=== PATIENT | male | born 1960 | race Caucasian/White ===

== ENCOUNTER 2023-08-30 07:09 | Emergency (ER) | payer OTHER, SELFPAY ==
[2023-08-30 07:10] VITALS: BP 163/107
[2023-08-30 07:41] VITALS: BMI 30.6
[2023-08-30 07:48] VITALS: BP 148/85
[2023-08-30 08:00] VITALS: BP 150/86
[2023-08-30] MEDS: NSS 500 IV (08:02)
[2023-08-30] MEDS: OMNIPAQUE 50 ML PO (08:02)
[2023-08-30 08:04] VITALS: BP 150/86
--- NOTE | 2023-08-30 08:05 | ED.GENMED ---
History of Present Illness
General
Chief Complaint: Bowel Problem
Source: patient
Exam Limitations: none
Time Seen by Provider: 08/30/23 07:21
Travel History
Have you had any contact with someone who has COVID-19?: No
Do you have any symptoms of coronavirus? Fever > 100 degrees, chills, cough, shortness of breath, sore throat, loss of taste or smell, muscle aches, or headache?: No
History of Present Illness
History of Present Illness:
63-year-old male complaining of abdominal bloating distention vague discomfort and no bowel movement for 2 or 3 days. History of an episode like this in the past. No response to oral laxatives. No fever no back pain.
Past History
Past History
ED Past Medical History: NIDDM
ED Past Surgical History: Other (umbilical hernia repair age 30)
Social History
Tobacco: Smoker
Alcohol: Occasional
Drug: None
Personal:
Living: with family (Patient has 4 daughters )
Employment: Employed (Patient states he works 2 jobs )
Family History
Family History: Other (Cerebral aneurysms ); Negative Diabetes, Hypertension, Early CAD, Asthma or Cancer
Review of Systems
Review of Systems
All Other Systems: Not applicable
Constitutional: Denies fever
Respiratory: Reports no symptoms
Cardiac: Reports no symptoms
: Reports no symptoms
Phy Exam
Physical Exam
Physical Exam:
GENERAL: Alert and oriented in no apparent distress
EYE: Orbits normal.
NECK: Supple
CARDIAC: Regular rate and rhythm without any obvious murmurs.
LUNGS: Clear breath sounds,normal
ABDOMEN: Distended. Bowel sounds present but decreased. No focal tenderness. Small periumbilical incision. No obvious periumbilical hernia. Rectal exam with minimal stool. Prostate normal.
NEUROLOGICAL: Alert and oriented , grossly non-focal
SKIN: Warm and dry, no rash or lesion, no discoloration, skin intact.
MUSCULOSKELETAL: No edema,no deformity.Good color
PSYCH: Normal and appropriate interaction.
Course
Orders/Labs/Results
Orders:
Orders
08/30/23 07:30
CT Abd/pel W Iv And Oral Contr Urgent
Comment:
Reason For Exam: Abdominal distention/bloating/constipation
IV Insert/Care/Rem.- Treatment PRN
0.9% Sodium Chloride 500 ml [Nss] 500 ml IV BOLUS
Iohexol [Omnipaque] See Protocol PO NOW STA
08/30/23 07:55
Complete Blood Count/With Diff Urgent
Comprehensive Metabolic Panel Urgent
Lipase Urgent
08/30/23 11:17
Enema- Treatment ONCE
Type: Milk of Molasses
08/30/23 11:50
Mineral Oil Enema [Fleet Mineral Oil Enema] 133 ml RECTAL NOW STA
08/30/23 12:30
Magnesium Citrate [Citroma] 150 ml PO ONCE ONE
Abnormal Lab Results
08/30/23
07:55
RBC 4.23 L 10^6/uL
(4.70-6.10)
MCV 101.7 H fL
(80.0-94.0)
MCH 35.5 H pg
(27.0-31.0)
MPV 10.5 H fL
(7.4-10.4)
Abs Immat Gran (auto) 0.1 H 10^3/uL
(0-0.05)
Immature Gran % 0.7 H %
(0-0.5)
Lymphocytes % 19.9 L %
(20.5-51.1)
Glucose 167 H mg/dl
(70-99)
ALT 89 H U/L
(0-50)
08/30/23 07:55
08/30/23 07:55
Vital Signs
Initial and Last Documented VS:
Initial Vital Signs
Temp Pulse Resp BP Pulse Ox
97.8 F 103 20 163/107 97
08/30/23 07:10 08/30/23 07:10 08/30/23 07:10 08/30/23 07:10 08/30/23 07:10
Last Documented Vital Signs
Temp Pulse Resp BP Pulse Ox
97.8 F 94 18 136/94 97
08/30/23 07:10 08/30/23 08:04 08/30/23 08:04 08/30/23 11:14 08/30/23 08:04
MDM/Problems Addressed
Differential Diagnosis Includes:
Although this may be a constipation issue. With no obvious fecal impaction some distention. I did question a fluid wave. Feel CT is warranted.
*Radiology
Radiology exam reviewed: radiology read reviewed (No acute findings. Incidental findings including diverticulosis, inguinal hernias)
*Pulse Oximetry
Patient hypoxic: no
*Critical Care Note
Total Time (30-74mins, 75-104mins- exclusive of procedures): Not Applicable
Data Reviewed
Review of Other/Old Records Reveals: Labs, Records and Testing
Update Note
Update Note:
No serious issues found. Will try and in addition to continued oral meds for constipation.
We will give the patient a dose of mag citrate. Patient concerned with no response from the enema however the enema was not a highly effective enema nor do I expect it to necessarily work for diffuse constipation issue. Stressed oral management.
Also stressed follow-up with GI which he states he would arrange through his primary physician
ED Attending Note
-
Portions of this chart may have been created with voice recognition software.� Occasional wrong word or��sound alike� substitutions may have occurred due to the inherent limitations of voice recognition software.
Discharge Plan
Departure
Patient Disposition: Home (Routine Discharge)
Date of Disposition: 08/30/23
Time of Disposition: 12:06
Patient with high blood pressure during this ER visit?: Yes
Discharge Problem:
Constipation, Incidental diverticulosis/inguinal herni
Instructions: Constipation, Adult (DC), Abdominal Pain, BLOOD PRESSURE
Prescriptions:
No Action
ibuprofen [Advil] 200 MG tablet
200 mg PO
duloxetine 60 MG capsule,delayed release(DR/EC)
60 mg PO DAILY
meclizine 25 MG tablet
50 mg PO Q8HPRN PRN (Reason: nausea or vertigo) Qty: 20 0RF
prednisone 50 mg tablet
50 mg PO DAILY Qty: 5 0RF
albuterol sulfate [ProAir HFA] 90 mcg/actuation HFA aerosol inhaler
1 puff inhalation Q4HPRN PRN (Reason: shortness of breath) Qty: 8.5 0RF
lactulose 10 gram/15 mL (15 mL) solution
10 g PO BID PRN (Reason: constipation) Qty: 473 0RF
Referrals:
Ta Blue DO [Family Provider] - Follow up in 2-3 days
Interventions
Interventions:
*Risk Screen - Suicide Last Done: 08/30/23 07:41
*General Assessment Last Done: 08/30/23 07:41
*Neglect/Abuse Screening Last Done: 08/30/23 07:41
ED- Fall Risk Assessment Last Done: 08/30/23 13:08
*ED COVID-19 Vaccine History Last Done: 08/30/23 07:10
*Nursing Disposition Last Done: 08/30/23 13:08
UR-Ndcamu-Ody[facility]ouorn Assessment Last Done: 08/30/23 07:41
Discharge Date and Time
Discharge Date/Time: 08/30/23 13:09
Print Language: [id number]
[2023-08-30 08:18] LABS: % Basophils 0.6 % (0-2); % Eosinophils 0.7 % (0-6); % Immature Granulocytes 0.7 % (0-0.5); % Lymphocytes 19.9 % (20.5-51.1); % Monocytes 8.9 % (1.7-9.3); % Neutrophils 69.2 % (42.2-75.2); Absolute Eosinophils 0.1 10^3/uL (0-0.7); Absolute Immature Granulocytes 0.1 10^3/uL (0-0.05); Absolute Lymphocytes 1.4 10^3/uL (1.2-3.4); Absolute Monocytes 0.6 10^3/uL (0.1-0.6); Absolute Neutrophils 4.9 10^3/uL (1.4-6.5); Mean Corp Hgb Conc. 34.9 g/dL (33.0-37.0); Mean Corpuscular Hgb 35.5 pg (27.0-31.0); Mean Corpuscular Volume 101.7 fL (80.0-94.0); Mean Platelet Volume 10.5 fL (7.4-10.4); Nucleated Red Blood Cells % 0 % (-); Platelet Count 185 10^3/uL (130-400); Red Blood Cell Count 4.23 10^6/uL (4.70-6.10); Red Cell Dist. Width 12.3 % (11.5-14.5); White Blood Cell Count 7.1 10^3/uL (4.8-10.8)
[2023-08-30 08:24] LABS: ALT (SGPT) 89 U/L (0-50); AST (SGOT) 46 U/L (17-59); Albumin 4.3 g/dl (3.5-5.0); Alkaline Phosphatase 48 U/L (38-126); Blood Urea Nitrogen 10 mg/dl (9-20); Calcium 9.2 mg/dl (8.4-10.2); Carbon Dioxide 24 mmol/L (22-30); Chloride 105 mmol/L (98-107); Estimated Creatinine Clearance 114 ml/min; Glucose 167 mg/dl (70-99); Lipase 41 U/L (23-300); Potassium 4.5 mmol/L (3.5-5.1); Sodium 136 mmol/L (135-145); Total Bilirubin 1.3 mg/dl (0.2-1.3); Total Protein 7.1 g/dl (6.3-8.2); eGFR > 60.00
[2023-08-30 09:00] VITALS: BP 153/104
[2023-08-30 11:14] VITALS: BP 136/94
[2023-08-30] MEDS: FLEET MINERAL OIL ENEMA 133 ML RECTAL (11:53)
[2023-08-30] MEDS: CITROMA 150 ML PO (12:44)
== END 2023-08-30 13:09 | disposition home or self-care (01) ==
LOC: EMR 07:09
PROVIDERS: EMERGENCY PHYSICIAN Emergency Medicine; FAMILY PHYSICIAN Family Medicine
DX: K59.00 Constipation, unspecified (principal); K57.30 Diverticulosis of large intestine without perforation or abscess without bleeding; R03.0 Elevated blood-pressure reading, without diagnosis of hypertension
CPT/HCPCS: 99285; 96360; 96361; 74177; 80053; 83690; 85025; Q9967